=== PATIENT | male | born 1965 | race Two or more races ===

== ENCOUNTER 2025-02-13 19:33 | Emergency (ER) | payer MEDICAID, OTHER ==
[~2025-02-13] VITALS: Ht 182.9 cm; Wt 79.4 kg
[2025-02-13 19:36] VITALS: BP 140/84
[2025-02-13] MEDS ORDERED: IBUPROFEN 600 MG TABLET ONE (20:02)
[2025-02-13] MEDS: IBUPROFEN 600 MG TABLET PO ONE (20:03)
[2025-02-13] MEDS ORDERED: CYCL10TA24 PO (20:10)
[2025-02-13] MEDS ORDERED: ONDA-243 PO (20:10)
[2025-02-13] MEDS ORDERED: HYDR-3980 PO (20:10)
[2025-02-13 20:41] VITALS: BP 140/84; O2SAT 96
== END 2025-02-13 20:41 | disposition home or self-care (01) ==
LOC: ER 19:37
DX: M54.50 Low back pain, unspecified (principal); M47.816 Spondylosis without myelopathy or radiculopathy, lumbar region; V89.2XXA Person injured in unspecified motor-vehicle accident, traffic, initial encounter; Y93.89 Activity, other specified; Y92.410 Unspecified street and highway as the place of occurrence of the external cause; Y99.9 Unspecified external cause status
CPT/HCPCS: 72100; A4606; A4663